=== PATIENT | male | born 1970 | race Caucasian/White ===

== ENCOUNTER 2020-12-23 20:02 | Emergency (ER) | payer OTHER ==
[2020-12-23 21:11] LABS: BASOPHIL 0.5 % (0-2); HCT 39.6 % (42.0-52.0); HGB 12.6 g/dl (13.2-18.0); MCH 25.8 pg (25.0-31.0); MCHC 31.8 g/dL (32.0-36.0); MCV 81.1 fL (78.0-100.0); MONOCYTE 8.9 % (0-12); MPV 9.1 fL (6.0-9.5); NEUTROPHIL 65.1 % (41-80); NRBC 0; PLT 395 K/uL (150-400); RBC 4.88 M/uL (4.70-6.00); RDW 15.4 % (11.5-14.0); WBC 11.6 K/uL (4.0-10.5)
[2020-12-23 21:16] LABS: ALBUMIN 3.3 g/dL (3.4-5.0); BILIRUBIN - TOTAL 0.3 mg/dL (0.2-1.0); BUN/CREAT RATIO (CALC) 15.5 RATIO; CREATININE 1.29 mg/dL (0.67-1.17); GLOBULIN (CALCULATION) 5.2 g/dL; POTASSIUM 4.6 mmol/L (3.5-5.1); TOTAL PROTEIN 8.5 g/dL (6.4-8.2)
[2020-12-23 22:06] LABS: CORONAVIRUS 2019 SARS-COV-2 NEGATIVE (NEGATIVE); INFLUENZA A NAA NEGATIVE (NEGATIVE)
[2020-12-23] MEDS ORDERED: AUGMENTIN 875-1 EACH PO (22:26)
== END 2020-12-23 22:40 | disposition home or self-care (01) ==
LOC: FER 20:02
PROVIDERS: Emergency Medicine Emergency Medical Services
DX: K57.32 Diverticulitis of large intestine without perforation or abscess without bleeding (principal); N28.89 Other specified disorders of kidney and ureter; I10 Essential (primary) hypertension; E11.9 Type 2 diabetes mellitus without complications; Z20.822 Contact with and (suspected) exposure to COVID-19; Z79.899 Other long term (current) drug therapy
CPT/HCPCS: 36415; 80053; 85025; U0002

== ENCOUNTER 2021-03-01 11:18 | Emergency (ER) | payer OTHER ==
[~2021-03-01] VITALS: Ht 177.8 cm; Wt 124.7 kg
[~2021-03-01 11:18] MED LIST: AUGMENTIN 875-1 EACH PO
[2021-03-01 13:53] LABS: BASOPHIL 0.7 % (0-2); EOSINOPHIL 4.4 % (0-5); HCT 44.9 % (42.0-52.0); HGB 13.9 g/dl (13.2-18.0); LYMPHOCYTE 15.3 % (15-48); MCH 24.4 pg (25.0-31.0); MCV 78.9 fL (78.0-100.0); MONOCYTE 5.7 % (0-12); MPV 8.8 fL (6.0-9.5); NEUTROPHIL 72.8 % (41-80); NRBC 0; PLT 574 K/uL (150-400); RBC 5.69 M/uL (4.70-6.00); RDW 15.6 % (11.5-14.0); WBC 16.1 K/uL (4.0-10.5)
[2021-03-01 14:10] LABS: BILIRUBIN NEGATIVE (NEGATIVE); BLOOD NEGATIVE Ery/uL (NEGATIVE); CLARITY CLEAR (CLEAR); COLOR YELLOW (YELLOW); GLUCOSE (U) NORMAL (NORMAL); LEUKOCYTES NEGATIVE Leu/uL (NEGATIVE); NITRITE NEGATIVE (NEGATIVE); PROTEIN TRACE (LOW) mg/dL (NEGATIVE); SPECIFIC GRAVITY 1.025 (1.001-1.030); UROBILINOGEN 0.2 mg/dL (0.2-1.0); pH 5.5 (5.0-9.0)
[2021-03-01 14:14] LABS: ALBUMIN 3.4 g/dL (3.4-5.0); BILIRUBIN - TOTAL 0.3 mg/dL (0.2-1.0); BUN/CREAT RATIO (CALC) 13.5 RATIO; CREATININE 1.56 mg/dL (0.67-1.17); GLOBULIN (CALCULATION) 6.5 g/dL; POTASSIUM 5.5 mmol/L (3.5-5.1); TOTAL PROTEIN 9.9 g/dL (6.4-8.2)
[2021-03-01 14:22] LABS: BACTERIA TRACE; MUCOUS LARGE
[2021-03-01 16:34] LABS: CORONAVIRUS 2019 SARS-COV-2 NEGATIVE (NEGATIVE); INFLUENZA A NAA NEGATIVE (NEGATIVE)
[2021-03-01] MEDS ORDERED: HYDROCODON-ACE1 EAC2 PO (17:31)
[2021-03-01] MEDS ORDERED: VIBRAMYCIN100 MG PO (17:31)
== END 2021-03-01 15:42 | disposition home or self-care (01) ==
LOC: FER 11:18
PROVIDERS: Internal Medicine
DX: M25.511 Pain in right shoulder (principal); M79.81 Nontraumatic hematoma of soft tissue; N17.9 Acute kidney failure, unspecified; E87.5 Hyperkalemia; E11.9 Type 2 diabetes mellitus without complications; I10 Essential (primary) hypertension; Z79.899 Other long term (current) drug therapy; Z79.84 Long term (current) use of oral hypoglycemic drugs
CPT/HCPCS: 36415; 71250; 80053; 81001; 85025; 93005; J7030; U0002